=== PATIENT | male | born 1945 | race Caucasian/White ===

== ENCOUNTER 2016-10-13 08:45 | Day surgery (SDC) | payer OTHER, MEDICARE ==
[~2016-10-13 08:45] MED LIST: BUPIVACAINE 0.5% 30 ML SDV ONE; LIDOCAINE 1% 2 ML INJ ONE; LIDOCAINE 1% 300 MG/30 ML SDV ONE; LR 1,000 ML IV ONE; ceFAZolin 2 GM/DEXTROSE 100 ML IV ONE
[2016-10-13] MEDS ORDERED: PROPOFOL 200 MG/20 ML VIAL ONE ×2 (09:38→09:39)
[2016-10-13] MEDS ORDERED: fentaNYL 100 MCG/2 ML INJ ONE (09:38)
[2016-10-13] MEDS ORDERED: LIDOCAINE 2% 100 MG/5 ML SYR ONE (09:41)
[2016-10-13] MEDS ORDERED: DEXAMETHASONE 4 MG/ML VIAL ONE (10:25)
[2016-10-13] MEDS ORDERED: PHENYLEPHRINE HCL 100 MCG/ML SYR ONE ×2 (10:25→11:18)
[2016-10-13] MEDS ORDERED: ONDANSETRON 4 MG/2 ML VIAL ONE (10:25)
[2016-10-13] MEDS ORDERED: HYDROmorphONE/DILAUDID 2 MG/ML INJ ONE (10:30)
[2016-10-13] MEDS ORDERED: THROMBIN (BOVINE) 20,000 UNIT VIAL TP ONE (11:30)
--- NOTE | 2016-10-13 12:34 | GOP ---
[f rep st] OPERATIVE REPORT DATE OF OPERATION: 10/13/2016 SURGEON: Agata Choe MD [employer]ER: Alla Ramirez PA-C ANESTHESIA: General. ANESTHESIOLOGIST: Silver Pantoja MD PREOPERATIVE DIAGNOSIS: Metastatic penile cancer. POSTOPERATIVE DIAGNOSIS: Metastatic penile cancer. PROCEDURE PERFORMED: Left superficial and deep inguinal lymph node dissection. FINDINGS: Scant tissue. SPECIMENS: Lymph nodes. ESTIMATED BLOOD LOSS: 25 cc. INDICATIONS: The patient is a 71-year-old man with penile cancer, who was found to have positive lymph nodes. He presents for dissection. DESCRIPTION OF PROCEDURE: The patient was brought into the operating room and general anesthesia was administered. His left thigh and abdomen were prepped and draped in the usual sterile fashion. I infiltrated the area with 0.5% Marcaine prior to making incisions. I made a lazy-S incision from the anterior superior iliac spine down over the femoral vessels. I dissected down through the subcutaneous tissue. I developed flaps to expose the aponeurosis of the external oblique and the femoral triangle. Dissection commenced at the adductor longus muscle just below the inguinal ligament. The fascia was incised , and fatty and areolar tissue were swept. The greater saphenous vein was identified and dissected along its entire course to the saphenofemoral junction. I ligated small veins. I then identified the sartorius. The femoral artery and vein were identified at the apex of the femoral triangle. Areolar and fatty node-bearing tissue was reflected from the vessels proceeding cephalad. The femoral nerve and its branches were identified and protected. I continued my dissection by incising the inguinal ligament and reflecting it medially. I went through the aponeurosis of the external oblique, internal oblique, and transverse abdominis to expose the retroperitoneum. I continued my dissection by following the femoral artery and vein cephalad. The lateral femoral cutaneous nerve was protected. Soft tissue was dissected off the common and external iliacs. There was scant tissue in this area. There was 1 small breach in the peritoneum which was repaired with 2-0 Vicryl. Hemostasis was achieved. The sartorius muscle was detached and transposed medially. I closed the inguinal ligament with 2-0 Prolene. I then brought the sartorius to lie over the femoral vessels and secured this with 0 Vicryl to the inguinal ligament. A drain was placed, a 15 round silicone. It was sutured in place with 2-0 Prolene. Hemostasis was achieved. Deep layers were closed with 3-0 Vicryl, skin closed with 3-0 Vicryl, followed by 4-0 Monocryl. I reinforced this incision with a few interrupted 3-0 nylon sutures. Mastisol, Steri-Strips , sterile dressing were applied. He was awakened in the operating room, extubated, transferred to the PACU in stable condition. /[id number]/MODL MTDD
== END 2016-10-13 14:05 | disposition home or self-care (01) ==
LOC: EDSTATUS 08:45 → FSGY 08:45 → PREOBSVTOIN 10:33 → FSGY 14:05
PROVIDERS: ATTEND Surgery
PROC: 07BJ0ZX Excision of Left Inguinal Lymphatic, Open Approach, Diagnostic (ICD-10-PCS; principal; 2016-10-13 08:45)
DX: R59.0 Localized enlarged lymph nodes (principal); C68.0 Malignant neoplasm of urethra; C60.9 Malignant neoplasm of penis, unspecified; I25.10 Atherosclerotic heart disease of native coronary artery without angina pectoris; N40.0 Benign prostatic hyperplasia without lower urinary tract symptoms; E78.00 Pure hypercholesterolemia, unspecified; I10 Essential (primary) hypertension; Z96.652 Presence of left artificial knee joint
CPT/HCPCS: J0690; J1100; J1170; J2001; J2370; J2405; J2704; J3010

== ENCOUNTER → 2018-01-21 | Outpatient (CLI) | payer OTHER, MEDICARE | LOC: GIMAGING 09:59 | PROVIDERS: ATTEND Internal Medicine | DX: M79.641 Pain in right hand (principal); M79.89 Other specified soft tissue disorders | CPT/HCPCS: 73130-PO ==